=== PATIENT | female | born 1990 | race Caucasian/White ===

== ENCOUNTER 2019-05-16 07:49 | Emergency (ER) | payer BC, OTHER ==
[2019-05-16 08:15] VITALS: O2SAT 99
--- NOTE | 2019-05-16 08:42 | ERPHSYRPT ---
- History of Present Illness Time Seen by Provider: 05/16/19 08:15 Source: patient Exam Limitations: no limitations Patient Subjective Stated Complaint: 7 weeks and is bleeding, has been bleeding for 3 weeks but worse today Triage Nursing Assessment: Pt walked into the ER, vitals wnl, skin N/W/D, unable to hear heart tones at this time, blood is bright red and dark per patient, denies pain, hasn't had her first OB appt Physician History: 28 y/o white female presents with intermittent vaginal bleeding for 3 weeks. pt is approx 7 weeks . pt states vaginal bleeding sig increased this am and had associated vaginal cramping. no dizziness. no sig abd pain. no heart tones audible this am in ED. denies abd trauma Timing/Duration: intermittent, worse (this am) Activites at Onset: none Quality: cramping (mild vaginal) Onset Location: vaginal Pain Radiation: none Severity of Pain-Max: mild Severity of Pain-Current: mild Prior abdominal problems: none Sexual intercourse history: non-contributory Modifying Factors: Improves With: nothing Associated Symptoms: , No abdominal pain, No nausea, No vomiting, No dysuria Allergies/Adverse Reactions: Penicillins Allergy (Verified 05/16/19 08:15) Home Medications: No Reportable Medications [No Reported Medications] 05/16/19 [History] Hx Tetanus, Diphtheria Vaccination/Date Given: Yes Hx Influenza Vaccination/Date Given: No Hx Pneumococcal Vaccination/Date Given: No - Review of Systems Eyes: No Symptoms Ears, Nose, & Throat: No Symptoms Respiratory: No Symptoms Cardiac: No Symptoms Abdominal/Gastrointestinal: No Symptoms Genitourinary Symptoms: Vaginal Bleeding Musculoskeletal: No Symptoms Skin: No Symptoms Neurological: No Symptoms Psychological: No Symptoms Endocrine: No Symptoms Hematologic/Lymphatic: No Symptoms Immunological/Allergic: No Symptoms All Other Systems: Reviewed and Negative - Past Medical History Pertinent Past Medical History: No Neurological History: No Pertinent History ENT History: No Pertinent History Cardiac History: No Pertinent History Respiratory History: No Pertinent History Endocrine Medical History: No Pertinent History Musculoskeletal History: No Pertinent History GI Medical History: No Pertinent History History: No Pertinent History Psycho-Social History: No Pertinent History Female Reproductive Disorders: No Pertinent History - Past Surgical History Past Surgical History: Yes Neuro Surgical History: No Pertinent History Cardiac: No Pertinent History Respiratory: No Pertinent History Gastrointestinal: No Pertinent History Genitourinary: No Pertinent History Musculoskeletal: Orthopedic Surgery Female Surgical History: No Pertinent History - Social History Smoking Status: Never smoker Exposure to second hand smoke: No Drug Use: none Patient Lives Alone: No - Female History Hx Now: Yes Gestational Age: 7 weeks - Nursing Vital Signs Nursing Vital Signs: Initial Vital Signs Temperature 97.9 F 05/16/19 08:03 Pulse Rate 97 H 05/16/19 08:03 Blood Pressure 137/94 05/16/19 08:03 O2 Sat by Pulse Oximetry 99 05/16/19 08:03 Pain Scale Pain Intensity 0 - Physical Exam General Appearance: no apparent distress, alert, anxiety Eye Exam: PERRL/EOMI, eyes nml inspection Ears, Nose, Throat Exam: normal ENT inspection, moist mucous membranes Neck Exam: normal inspection, non-tender, supple, full range of motion Respiratory Exam: normal breath sounds, lungs clear, airway intact, No chest tenderness, No respiratory distress Cardiovascular Exam: regular rate/rhythm, normal heart sounds, normal peripheral pulses Gastrointestinal/Abdomen Exam: soft, normal bowel sounds, No tenderness, No guarding, No rebound Pelvic Exam: not done SpO2: 99 Ordered Tests: Active Orders 24 hr Category Date Time Status Heart Tones-ED STAT Care 05/16/19 08:30 Active IV Insertion STAT Care 05/16/19 08:30 Active OB <14 WKS 1ST GESTATION [US] Stat Exams 05/16/19 08:30 Completed CBC W DIFF Stat Lab 05/16/19 08:39 Completed CMP Stat Lab 05/16/19 08:39 Completed CULTURE,URINE Stat Lab 05/16/19 08:46 Received HCG, Quantitative (Inhouse) Stat Lab 05/16/19 08:30 Completed UA W/RFX UR CULTURE Stat Lab 05/16/19 08:46 Completed Medication Summary Generic Name Dose Route Start Last Admin Trade Name Freq PRN Reason Stop Dose Admin Sodium Chloride 500 mls @ 500 mls/hr 05/16/19 09:29 05/16/19 09:43 Sodium Chloride 0.9% 500 Ml IV 05/16/19 10:28 500 mls/hr .Q1H ONE Administration Discontinued Medications Generic Name Dose Route Start Last Admin Trade Name Freq PRN Reason Stop Dose Admin Sodium Chloride Confirm 05/16/19 09:39 Sodium Chloride 0.9% 1000 Ml Administered 08/07/19 09:40 Dose 1,000 mls @ .[facility] Lab/Rad Data: Laboratory Result Diagrams 05/16/19 08:39 05/16/19 08:39 Laboratory Results 05/16/19 05/16/19 05/16/19 Range/Units 08:46 08:39 08:39 WBC 8.6 (4.0-10.5) K/mm3 RBC 4.60 (4.1-5.4) M/mm3 Hgb 13.7 (12.0-16.0) gm/dl Hct 41.1 (35-47) % MCV 89.3 (78-100) fl MCH 29.8 (26-32) pg MCHC 33.3 (32-36) g/dl RDW 13.6 (11.5-14.0) % Plt Count 295 (150-450) K/mm3 MPV 10.6 H (6-9.5) fl Gran % 78.0 H (36.0-66.0) % Eos # (Auto) 0.03 (0-0.5) Absolute Lymphs (auto) 1.30 (1.0-4.6) Absolute Monos (auto) 0.55 (0.0-1.3) Lymphocytes % 15.1 L (24.0-44.0) % Monocytes % 6.4 (0.0-12.0) % Eosinophils % 0.3 (0.00-5.0) % Basophils % 0.2 (0.0-0.4) % Absolute Granulocytes 6.71 (1.4-6.9) Basophils # 0.02 (0-0.4) Sodium 140 (137-145) mmol/L Potassium 4.6 (3.5-5.1) mmol/L Chloride 106 (98-107) mmol/L Carbon Dioxide 25 (22-30) mmol/L Anion Gap 14.4 (5-15) MEQ/L BUN 9 (7-17) mg/dL Creatinine 0.62 (0.52-1.04) mg/dL Estimated GFR > 60.0 ML/MIN Glucose 82 (74-106) mg/dL Calcium 10.2 (8.4-10.2) mg/dL Total Bilirubin 0.90 (0.2-1.3) mg/dL AST 27 (14-36) U/L ALT 35 (0-35) U/L Alkaline Phosphatase 67 (38-126) U/L Serum Total Protein 8.0 (6.3-8.2) g/dL Albumin 4.7 (3.5-5.0) g/dL Beta HCG, Quant mIU/ml Urine Color TALIB (YELLOW) Urine Appearance SLIGHTLY CLOUDY (CLEAR) Urine pH 6.0 (5-6) Ur Specific [place] 1.026 (1.005-1.025) Urine Protein 30 (Negative) Urine Ketones MODERATE (NEGATIVE) Urine Blood LARGE (0-5) Donte/ul Urine Nitrite NEGATIVE (NEGATIVE) Urine Bilirubin NEGATIVE (NEGATIVE) Urine Urobilinogen NEGATIVE (0-1) mg/dL Ur Leukocyte Esterase NEGATIVE (NEGATIVE) Urine WBC (Auto) 6-10 (0-5) /HPF Urine RBC (Auto) >101 (0-2) /HPF U Epithel Cells (Auto) RARE (FEW) /HPF Urine Bacteria (Auto) RARE (NEGATIVE) /HPF Unidentified Crystals 2-5 (NEGATIVE) /HPF Urine Mucus (Auto) MODERATE (NEGATIVE) /HPF Urine Culture Reflexed YES (NO) Urine Glucose NEGATIVE (NEGATIVE) mg/dL 05/16/19 Range/Units 08:30 WBC (4.0-10.5) K/mm3 RBC (4.1-5.4) M/mm3 Hgb (12.0-16.0) gm/dl Hct (35-47) % MCV (78-100) fl MCH (26-32) pg MCHC (32-36) g/dl RDW (11.5-14.0) % Plt Count (150-450) K/mm3 MPV (6-9.5) fl Gran % (36.0-66.0) % Eos # (Auto) (0-0.5) Absolute Lymphs (auto) (1.0-4.6) Absolute Monos (auto) (0.0-1.3) Lymphocytes % (24.0-44.0) % Monocytes % (0.0-12.0) % Eosinophils % (0.00-5.0) % Basophils % (0.0-0.4) % Absolute Granulocytes (1.4-6.9) Basophils # (0-0.4) Sodium (137-145) mmol/L Potassium (3.5-5.1) mmol/L Chloride (98-107) mmol/L Carbon Dioxide (22-30) mmol/L Anion Gap (5-15) MEQ/L BUN (7-17) mg/dL Creatinine (0.52-1.04) mg/dL Estimated GFR ML/MIN Glucose (74-106) mg/dL Calcium (8.4-10.2) mg/dL Total Bilirubin (0.2-1.3) mg/dL AST (14-36) U/L ALT (0-35) U/L Alkaline Phosphatase (38-126) U/L Serum Total Protein (6.3-8.2) g/dL Albumin (3.5-5.0) g/dL Beta HCG, Quant 3219.8 mIU/ml Urine Color (YELLOW) Urine Appearance (CLEAR) Urine pH (5-6) Ur Specific [place] (1.005-1.025) Urine Protein (Negative) Urine Ketones (NEGATIVE) Urine Blood (0-5) Donte/ul Urine Nitrite (NEGATIVE) Urine Bilirubin (NEGATIVE) Urine Urobilinogen (0-1) mg/dL Ur Leukocyte Esterase (NEGATIVE) Urine WBC (Auto) (0-5) /HPF Urine RBC (Auto) (0-2) /HPF U Epithel Cells (Auto) (FEW) /HPF Urine Bacteria (Auto) (NEGATIVE) /HPF Unidentified Crystals (NEGATIVE) /HPF Urine Mucus (Auto) (NEGATIVE) /HPF Urine Culture Reflexed (NO) Urine Glucose (NEGATIVE) mg/dL - Progress Progress: unchanged Air Movement: good Progress Note: 05/16/19 09:33 u/s report-possible very early . prominent endometrial stripe. ? left corpus luteal cyst. Counseled pt/family regarding: lab results, diagnosis, need for follow-up, rad results - Departure Departure Disposition: Home Clinical Impression: Vaginal bleeding during Condition: Stable Critical Care Time: No Referrals: HARLEEN CUNHA MD [Primary Care Provider] - Additional Instructions: drink plenty of fluids. follow up with labor delivery rn for serial beta hcg levels and repeat ultrasound if indicated.
[2019-05-16 08:48] LABS: BASOPHIL % 0.2 % (0.0-0.4); Basophil (Absolute #) 0.02 (0-0.4); Eosinophil % 0.3 % (0.00-5.0); Eosinophil (Absolute #) 0.03 (0-0.5); Granulocyte Absolute (ANC) 6.71 (1.4-6.9); Hematocrit 41.1 % (35-47); Hemoglobin 13.7 gm/dl (12.0-16.0); Lymphocytes % 15.1 % (24.0-44.0); Mean Cell Volume 89.3 fl (78-100); Mean Corpuscular Hemoglobin 29.8 pg (26-32); Mean Corpuscular Hgb Concent. 33.3 g/dl (32-36); Mean Platelet Volume 10.6 fl (6-9.5); Monocyte (Absolute #) 0.55 (0.0-1.3); Monocytes % 6.4 % (0.0-12.0); Platelet Count 295 K/mm3 (150-450); Red Cell Distribution Width 13.6 % (11.5-14.0); White Blood Count 8.6 K/mm3 (4.0-10.5)
[2019-05-16 09:04] LABS: ALBUMIN 4.7 g/dL (3.5-5.0); ALKALINE PHOSPHATASE 67 U/L (38-126); ANION GAP 14.4 MEQ/L (5-15); BLOOD UREA NITROGEN 9 mg/dL (7-17); CHLORIDE 106 mmol/L (98-107); Calcium 10.2 mg/dL (8.4-10.2); Carbon Dioxide 25 mmol/L (22-30); Creatinine 1 0.62 mg/dL (0.52-1.04); Glucose 82 mg/dL (74-106); Potassium 4.6 mmol/L (3.5-5.1); SGOT/AST 27 U/L (14-36); SGPT/ALT 35 U/L (0-35); SODIUM 140 mmol/L (137-145)
[2019-05-16 09:05] LABS: Appearance SLIGHTLY CLOUDY (CLEAR); Bacteria RARE /HPF (NEGATIVE); Bilirubin NEGATIVE (NEGATIVE); Blood LARGE Ery/ul (0-5); Epithelial Cells RARE /HPF (FEW); Glucose NEGATIVE (NEGATIVE); Ketones MODERATE (NEGATIVE); Leukocyte Esterase NEGATIVE (NEGATIVE); Mucus MODERATE /HPF (NEGATIVE); Nitrite NEGATIVE (NEGATIVE); Protein,Urine Dip 30 (Negative); Specific Gravity 1.026 (1.005-1.025); Urobilinogen NEGATIVE mg/dL (0-1)
[2019-05-16 09:07] LABS: RBC >101 /HPF (0-2)
--- NOTE | 2019-05-16 09:16 | XRAY ---
Indication: Bleeding. Two-dimensional transvaginal early OB ultrasound performed. Comparison: None Uterus anteverted without intrauterine gestational sac, pole, or heart tones. Endometrial stripe is prominent measuring 10.6 mm. No abnormal endometrial fluid collection. Lower uterine segment demonstrates 7 mm nabothian cyst. Left ovary demonstrates a 2.6 cm anechoic cyst. Right ovary sonographically unremarkable. No free fluid. Impression: Negative transvaginal pelvic sonogram. Possible very early as evidenced by prominent endometrial stripe and dominant left ovary cyst, possibly corpus luteal cyst. Correlate with serial beta hCG and follow-up sonogram.
[2019-05-16] MEDS ORDERED: Sodium Chloride 0.9% 500 ML 500 ML IV ONE (09:29)
[2019-05-16] MEDS ORDERED: Sodium Chloride 0.9% 1000 ML 1,000 ML ONE (09:39)
[2019-05-16 11:14] VITALS: BP 133/87; PULSE 78
== END 2019-05-16 11:11 | disposition home or self-care (01) ==
LOC: ED 07:49
DX: O20.9 Hemorrhage in early pregnancy, unspecified (principal); Z3A.01 Less than 8 weeks gestation of pregnancy
CPT/HCPCS: 36000; 36415; 76801; 80053; 81001; 84702; 85025; 87086; 96360; 99284

== ENCOUNTER 2019-05-17 12:31 | Emergency (ER) | payer BC, OTHER ==
[2019-05-17 12:48] VITALS: O2SAT 100
[2019-05-17] MEDS ORDERED: Sodium Chloride 0.9% 1000 ML 1,000 ML ONE (12:54)
[2019-05-17] MEDS ORDERED: Sodium Chloride 0.9% 1000 ML 1,000 ML IV STA (12:54)
--- NOTE | 2019-05-17 13:01 | ERPHSYRPT ---
- History of Present Illness Time Seen by Provider: 05/17/19 12:49 Source: patient Exam Limitations: no limitations Patient Subjective Stated Complaint: is 7 weeks and began having vaginal bleeding three weeks ago. was seen in er yesterday for same complaint. today bleeding is heavier and is having lower abd cramping. states has soaked through 5-6 pantiliners today. Triage Nursing Assessment: ambulated to room per self. skin w/d, color normal, resp easy. lower abd tender, soft. Physician History: Is a 28-year-old white female 1 para 0 who states she is 7 weeks with last menstrual period of March 26, 2019 She states she's been having intermittent vaginal bleeding for 3 weeks she was seen yesterday in this emergency room with complaint of vaginal bleeding she had a quantitative hCG performed which was 3219 she also had a pelvic ultrasound which was stated to be a negative vaginal ultrasound with possible early (endometrial stripe), the ultrasound did show a positive dominant left ovary cyst possible corpus luteal cyst. Patient states that she has had increased vaginal bleeding since today and having lower abdominal cramping. Past medical history is negative past surgical history is negative Timing/Duration: other (vaginal bleeding off and on for 3 weeks, seen in this emergency room yesterday, states increased vaginal bleeding and lower abdominal cramping today) Severity: moderate Modifying Factors: Improves With: nothing Associated Symptoms: abdominal pain (Suprapubic abdominal pain), No nausea, No vomiting, No shortness of breath, No heartburn, No diaphoresis, No cough, No chills, No chest pain, No fever, No headaches, No loss of appetite, No malaise, No rash, No syncope, No seizure, No weakness Allergies/Adverse Reactions: Penicillins Allergy (Verified 05/17/19 12:43) Home Medications: No Reportable Medications [No Reported Medications] 05/16/19 [History] Hx Tetanus, Diphtheria Vaccination/Date Given: Yes Hx Influenza Vaccination/Date Given: No Hx Pneumococcal Vaccination/Date Given: No - Review of Systems Constitutional: No Fever, No Chills Eyes: No Symptoms Ears, Nose, & Throat: No Symptoms Respiratory: No Cough, No Dyspnea Abdominal/Gastrointestinal: Abdominal Pain (Suprapubic abdominal pain( cramping) ), No Nausea, No Vomiting, No Diarrhea, No Constipation, No Hematemesis, No Hematochezia, No Melena, No Dysphagia, No Appetite Changes Genitourinary Symptoms: , Vaginal Bleeding, No Dysuria, No Frequency, No Hematuria, No Hesitancy, No Incontinence, No Urgency, No Urinary Retention, No Flank Pain, No Menorrhagia, No Vaginal Discharge, No Vaginal Itching Musculoskeletal: No Back Pain, No Neck Pain Skin: No Rash Neurological: No Dizziness, No Focal Weakness, No Sensory Changes Psychological: No Symptoms Endocrine: No Symptoms All Other Systems: Reviewed and Negative - Past Medical History Pertinent Past Medical History: No Neurological History: No Pertinent History ENT History: No Pertinent History Cardiac History: No Pertinent History Respiratory History: No Pertinent History Endocrine Medical History: No Pertinent History Musculoskeletal History: No Pertinent History GI Medical History: No Pertinent History History: No Pertinent History Psycho-Social History: No Pertinent History Female Reproductive Disorders: No Pertinent History - Past Surgical History Past Surgical History: Yes Neuro Surgical History: No Pertinent History Cardiac: No Pertinent History Respiratory: No Pertinent History Gastrointestinal: No Pertinent History Genitourinary: No Pertinent History Musculoskeletal: Orthopedic Surgery Female Surgical History: No Pertinent History - Social History Smoking Status: Never smoker Exposure to second hand smoke: No Drug Use: none Patient Lives Alone: No - Female History Hx Now: Yes (7 weeks) - Nursing Vital Signs Nursing Vital Signs: Initial Vital Signs Temperature 97.9 F 05/17/19 12:37 Pulse Rate 81 05/17/19 12:37 Respiratory Rate 16 05/17/19 12:37 Blood Pressure 141/87 05/17/19 12:37 O2 Sat by Pulse Oximetry 100 05/17/19 12:37 Pain Scale Pain Intensity 2 - Physical Exam General Appearance: mild distress Eye Exam: PERRL/EOMI, eyes nml inspection Ears, Nose, Throat Exam: normal ENT inspection, TMs normal, pharynx normal, moist mucous membranes Neck Exam: normal inspection, non-tender, supple, full range of motion Respiratory Exam: normal breath sounds, lungs clear, No respiratory distress Cardiovascular Exam: regular rate/rhythm, normal heart sounds, normal peripheral pulses, capillary refill <2 sec Gastrointestinal/Abdomen Exam: soft, tenderness (slight suprapubic tenderness) Pelvic Exam: normal external exam, vaginal bleeding (small amount of blood in vaginal vault), other (pelvic examination: Normal female external genitalia, small amount of blood in the vaginal vault,, cervix closed small amount of clear mucus at the cervical os, no adnexal tenderness, no cervical motion tenderne, uuterus mildly enlarged), No adnexal mass, No mass, No cervical motion tenderness, No uterine tenderness Back Exam: normal inspection, normal range of motion, No CVA tenderness, No vertebral tenderness Extremity Exam: normal inspection, normal range of motion, pelvis stable Neurologic Exam: alert, oriented x 3, cooperative, rn wound care II-XII nml as tested, normal mood/affect, nml cerebellar function, nml station & gait, sensation nml, No motor deficits Skin Exam: normal color, warm, dry, No rash SpO2 Interpretation: normal (100%) SpO2: 100 Ordered Tests: Active Orders 24 hr Category Date Time Status Orthostatic Vital Signs STAT Care 05/17/19 12:54 Active Pelvic Exam Assist STAT Care 05/17/19 12:55 Active BMP Stat Lab 05/17/19 12:50 Completed CBC W DIFF Stat Lab 05/17/19 12:50 Completed HCG, Quantitative (Inhouse) Stat Lab 05/17/19 12:50 Completed Wet Prep Stat Lab 05/17/19 14:00 Completed Medication Summary Discontinued Medications Generic Name Dose Route Start Last Admin Trade Name Freq PRN Reason Stop Dose Admin Sodium Chloride 1,000 mls @ 999 mls/hr 05/17/19 12:54 05/17/19 14:05 Sodium Chloride 0.9% 1000 Ml IV 05/17/19 13:54 Infused .Q1H1M STA Infusion Sodium Chloride Confirm 05/17/19 12:54 Sodium Chloride 0.9% 1000 Ml Administered 05/17/19 12:55 Dose 1,000 mls @ ud [facility] Lab/Rad Data: Laboratory Result Diagrams 05/17/19 12:50 05/17/19 12:50 Laboratory Results 05/17/19 05/17/19 05/17/19 Range/Units 14:00 13:10 12:50 WBC (4.0-10.5) K/mm3 RBC (4.1-5.4) M/mm3 Hgb (12.0-16.0) gm/dl Hct (35-47) % MCV (78-100) fl MCH (26-32) pg MCHC (32-36) g/dl RDW (11.5-14.0) % Plt Count (150-450) K/mm3 MPV (6-9.5) fl Gran % (36.0-66.0) % Eos # (Auto) (0-0.5) Absolute Lymphs (auto) (1.0-4.6) Absolute Monos (auto) (0.0-1.3) Lymphocytes % (24.0-44.0) % Monocytes % (0.0-12.0) % Eosinophils % (0.00-5.0) % Basophils % (0.0-0.4) % Absolute Granulocytes (1.4-6.9) Basophils # (0-0.4) Sodium 142 (137-145) mmol/L Potassium 4.1 (3.5-5.1) mmol/L Chloride 106 (98-107) mmol/L Carbon Dioxide 25 (22-30) mmol/L Anion Gap 15.6 H (5-15) MEQ/L BUN 9 (7-17) mg/dL Creatinine 0.70 (0.52-1.04) mg/dL Estimated GFR > 60.0 ML/MIN Glucose 81 (74-106) mg/dL Calcium 10.5 H (8.4-10.2) mg/dL Beta HCG, Quant mIU/ml WBC (Wet Prep) Few RBC (Wet Prep) Many Epi Cells (Wet Prep) Rare Bacteria (Wet Prep) Few Clue Cells (Wet Prep) None Seen Trichomonas (Wet Prep) None Seen Budding Yeast (Wet Prp) None Seen ABO Group A Rh Factor POSITIVE Antibody Screen NEGATIVE (NEGATIVE) 05/17/19 05/17/19 Range/Units 12:50 12:50 WBC 11.7 H (4.0-10.5) K/mm3 RBC 4.34 (4.1-5.4) M/mm3 Hgb 13.2 (12.0-16.0) gm/dl Hct 38.8 (35-47) % MCV 89.4 (78-100) fl MCH 30.4 (26-32) pg MCHC 34.0 (32-36) g/dl RDW 13.6 (11.5-14.0) % Plt Count 301 (150-450) K/mm3 MPV 10.7 H (6-9.5) fl Gran % 84.7 H (36.0-66.0) % Eos # (Auto) 0.03 (0-0.5) Absolute Lymphs (auto) 1.09 (1.0-4.6) Absolute Monos (auto) 0.65 (0.0-1.3) Lymphocytes % 9.3 L (24.0-44.0) % Monocytes % 5.6 (0.0-12.0) % Eosinophils % 0.3 (0.00-5.0) % Basophils % 0.1 (0.0-0.4) % Absolute Granulocytes 9.92 H (1.4-6.9) Basophils # 0.01 (0-0.4) Sodium (137-145) mmol/L Potassium (3.5-5.1) mmol/L Chloride (98-107) mmol/L Carbon Dioxide (22-30) mmol/L Anion Gap (5-15) MEQ/L BUN (7-17) mg/dL Creatinine (0.52-1.04) mg/dL Estimated GFR ML/MIN Glucose (74-106) mg/dL Calcium (8.4-10.2) mg/dL Beta HCG, Quant 2446.6 mIU/ml WBC (Wet Prep) RBC (Wet Prep) Epi Cells (Wet Prep) Bacteria (Wet Prep) Clue Cells (Wet Prep) Trichomonas (Wet Prep) Budding Yeast (Wet Prp) ABO Group Rh Factor Antibody Screen (NEGATIVE) - Progress Progress: improved Progress Note: 05/17/19 14:20 28-year-old female who was seen here yesterday secondary to vaginal bleeding for 3 weeks patient had an endometrial stripe on ultrasound yesterday. Patient stated that she had heavy bleeding at home on physical exam she has a small amount of blood in her vagina there is a cervix is closed there small clear fluid at the cervix there is no adnexal or cervical motion tenderness Patient's quantitative hCG today is 2446 yesterday quantitative hCG was 3219 Told the patient that he really needs 48 hours to look for a halfing all values when looking at quantitative hCG and evaluation of a miscarriage. Patient's wet prep is essentially normal blood type a positive negative antibody screen Chemistry is stable patient's CBC white blood cell 11.7 hemoglobin 13.2 hematocrit 38.8 platelets 301 Urinalysis was done yesterday Patient was given 1 L of normal saline will give patient Tylenol for pain. Will give patient a work slip for today and tomorrow. She is to followup with her [facility] physician. Expects repeat quantitative hCG tomorrow to be compared with the one from yesterday alternatively she can have one in 2 days from today. - Departure Departure Disposition: Home Clinical Impression: Threatened , Vaginal bleeding during Condition: Fair Critical Care Time: No Referrals: HARLEEN CUNHA MD [Primary Care Provider] - Additional Instructions: Return home. Plenty of fluids. Nothing in your vagina. Tylenol every 4 hours as needed for pain. Followup with your [facility] physician call and arrange followup. Return for acute distress or for severe symptoms or for any problems.
[2019-05-17 13:20] LABS: BASOPHIL % 0.1 % (0.0-0.4); Basophil (Absolute #) 0.01 (0-0.4); Eosinophil % 0.3 % (0.00-5.0); Eosinophil (Absolute #) 0.03 (0-0.5); Granulocyte Absolute (ANC) 9.92 (1.4-6.9); Granulocytes % 84.7 % (36.0-66.0); Hematocrit 38.8 % (35-47); Hemoglobin 13.2 gm/dl (12.0-16.0); Lymphocyte (Absolute #) 1.09 (1.0-4.6); Lymphocytes % 9.3 % (24.0-44.0); Mean Cell Volume 89.4 fl (78-100); Mean Corpuscular Hemoglobin 30.4 pg (26-32); Mean Platelet Volume 10.7 fl (6-9.5); Monocyte (Absolute #) 0.65 (0.0-1.3); Monocytes % 5.6 % (0.0-12.0); Platelet Count 301 K/mm3 (150-450); Red Blood Count 4.34 M/mm3 (4.1-5.4); Red Cell Distribution Width 13.6 % (11.5-14.0); White Blood Count 11.7 K/mm3 (4.0-10.5)
[2019-05-17 13:32] LABS: ANION GAP 15.6 MEQ/L (5-15); BLOOD UREA NITROGEN 9 mg/dL (7-17); CHLORIDE 106 mmol/L (98-107); Calcium 10.5 mg/dL (8.4-10.2); Carbon Dioxide 25 mmol/L (22-30); Glucose 81 mg/dL (74-106); Potassium 4.1 mmol/L (3.5-5.1); SODIUM 142 mmol/L (137-145)
[2019-05-17 13:51] VITALS: BP 111/80; PULSE 94
[2019-05-17 14:02] LABS: ABO TYPING A; Antibody Screen NEGATIVE (NEGATIVE); RH TYPING POSITIVE
[2019-05-17 14:03] LABS: Bacteria Few; Clue Cells None Seen; Red Blood Cells Many; Trichomonas None Seen; White Blood Cells Few; Yeast None Seen
[2019-05-17] MEDS ORDERED: TYLENOL 325 MG PO ONE (14:24)
[2019-05-17] MEDS ORDERED: TYLENOL 325 MG ONE (14:33)
[2019-05-17 15:23] LABS: CHLAMYDIA DNA NEGATIVE; N GONORRHOEAE DNA NEGATIVE
== END 2019-05-17 14:54 | disposition home or self-care (01) ==
LOC: ED 12:31
DX: O20.0 Threatened abortion (principal); Z3A.01 Less than 8 weeks gestation of pregnancy
CPT/HCPCS: 36000; 36415; 80048; 84702; 85025; 86850; 86900; 86901; 87210; 87490; 87590; 96360; 99284; A9270-GY

== ENCOUNTER 2019-07-09 09:44 | Day surgery (SDC) | payer BC ==
--- NOTE | 2019-07-09 08:53 | HP ---
DATE OF SURGERY: 07/09/2019 HISTORY OF PRESENT ILLNESS: The patient is a 29 year-old female with some abdominal pain, some nausea, afraid to eat, worse with meat. The smell of food causes nausea. Ultrasound no stones. HIDA ejection fraction 28%. It was felt she had symptomatic biliary dyskinesia, chronic cholecystitis. PAST MEDICAL HISTORY: Migraines. PAST SURGICAL HISTORY: Left foot big toe surgery in 2012. MEDICATIONS: Sumaritan (this is how the patient spells her medication). ALLERGIES: PENICILLIN. FAMILY HISTORY: Cancer, diabetes, hypertension. SOCIAL HISTORY: No smoking or alcohol abuse. REVIEW OF SYSTEMS: Fourteen systems reviewed. No chest pain or palpitations other systems negative or noncontributory as above and per preadmission questionnaire. She had been in the past and ended up having a miscarriage it sounds like. She wants to be rescheduled for cholecystectomy at this time. PHYSICAL EXAMINATION: GENERAL: No acute distress. HEENT: Sclerae nonicteric. NECK: No JVD. CHEST: Equal excursion, nonlabored breathing. CVS: Regular rate and rhythm. ABDOMEN: Soft, some mild tenderness epigastrium right upper quadrant. No peritoneal signs. EXTREMITIES: No edema. NEURO: Alert, oriented, moving extremities symmetrically. No gross motor deficits noted. IMPRESSION: Symptomatic biliary dyskinesia, chronic cholecystitis. I feel the patient will benefit from cholecystectomy. She is planned for laparoscopic cholecystectomy possible open. She was shown the gallbladder pamphlet and risk sheet, explained the procedure in detail including but not limited to bleeding or infection, risk of trocar injury or hernia, small risk of bowel, bladder or blood vessel or trocar injury, risk of hernia, risk of bile leak, bile duct injury, retained stone or sludge possibly requiring further procedure either open or ERCP, general risk of anesthesia, deep venous thrombosis, pulmonary embolism, pneumonia, perioperative risk of aches, pains, bloating, constipation and/or loose stools possibly even chronic in nature. She understands and agrees to the planned procedure, will proceed with outpatient laparoscopic cholecystectomy with possible open.
[~2019-07-09 09:44] MED LIST: CLINDAMYCIN-D5W 900 MG/50 ML*** 900 MG/50 ML BAG IV SCH; Lactated Ringers 1,000 ML IV ONE; Lactated Ringers 1,000 ML IV SCH; Levofloxacin 500MG/100ML D5W 500 MG/100 ML BAG IV ONE; Sensorcaine 0.25% 10 ML ONE
[2019-07-09] MEDS ORDERED: Zemuron 100 MG/10 ML ONE (10:19)
[2019-07-09] MEDS ORDERED: DIPRIVAN 200 MG/20 ML IV ONE (10:19)
[2019-07-09] MEDS ORDERED: SUBLIMAZE 250 MCG/5 ML ONE (10:20)
[2019-07-09] MEDS ORDERED: Versed 2 MG/2 ML Injection ONE (10:20)
[2019-07-09] MEDS ORDERED: Levofloxacin 500MG/100ML D5W 500 MG/100 ML BAG IV ONE (11:19)
[2019-07-09] MEDS ORDERED: Decadron 4 MG INJ ONE (11:48)
[2019-07-09] MEDS ORDERED: Xylocaine-Mpf 2% 5 Ml Vial ONE (11:50)
[2019-07-09] MEDS ORDERED: Zofran 4 MG/2 ML VIAL ONE ×2 (12:09→13:09)
[2019-07-09] MEDS ORDERED: BRIDION 200MG/2ML IV ONE (12:09)
[2019-07-09] MEDS ORDERED: TORAdol 30 mg Injection ONE (12:09)
[2019-07-09] MEDS ORDERED: DILAUDID 2 MG INJECTION ONE (12:34)
[2019-07-09] MEDS ORDERED: SUBLIMAZE 100 MCG/2 ML ONE (12:50)
[2019-07-09] MEDS ORDERED: Compazine 10 MG/2 ML IV ONE (14:35)
[2019-07-09] MEDS ORDERED: Lactated Ringers 1,000 ML IV ONE (15:34)
[2019-07-09 15:54] VITALS: O2SAT 98
[2019-07-09 16:52] VITALS: BP 123/71; PULSE 71
--- NOTE | 2019-07-10 07:56 | OP ---
SURGERY DATE/TIME: 07/09/2019 1140 PREOPERATIVE DIAGNOSIS: Symptomatic biliary dyskinesia, chronic cholecystitis. POSTOPERATIVE DIAGNOSIS: Symptomatic biliary dyskinesia, chronic cholecystitis. PROCEDURE: Laparoscopic cholecystectomy. SURGEON: Dr. Cosme Rowe. ANESTHESIA: General. ESTIMATED BLOOD LOSS: Minimal. INDICATIONS: As noted above. Risks and benefits explained in detail but not limited to and consent obtained. DESCRIPTION OF PROCEDURE AND FINDINGS: The patient was taken to the operating room. General anesthesia induced. Abdomen prepped and draped in the usual sterile fashion. After official time out and no disagreement with planned procedure, a transverse incision made supraumbilical area. Fascia grasped and pulled upward. Veress needle inserted and tested with saline. Pneumoperitoneum accomplished insufflating opening pressure of 0-15. An 11 mm bladeless port and camera inserted without difficulty followed by two - 5 mm right upper quadrant ports and 5 mm epigastric port. The gallbladder grasped retracted over the edge of the liver and laterally away from Calot's triangle. It had extensive chronic inflammation around the infundibular cystic duct junction area. Slowly and carefully this is dissected posterior, lateral to anterior fashion slowly and carefully until the cystic duct and cystic artery were isolated until critical view obtained both anteriorly and posteriorly. Once this is accomplished the cystic artery clipped x3 and divided in the usual fashion. Cystic duct had been cleared and again critical view obtained both anteriorly and posteriorly. Once this is accomplished the cystic duct clipped x3 and divided in usual fashion. The gallbladder slowly and carefully dissected free from its dense attachment to liver bed, staying directly on the gallbladder wall. It is slowly and carefully dissected free with aid of cautery staying directly on the gallbladder wall. Just prior to releasing from final attachments to the anterior edge of the liver, a little bit of bile seeped from the clipped end in the infundibular area this was reclipped. Clips are noted in place in cystic duct and cystic artery stump. There are no signs of any active bleeding or bile leakage from the liver bed. Gallbladder released from final attachments to anterior edge of the liver, pulled up and out the supraumbilical port site, decompressed and passed off. Copious amount of irrigation accomplished lateral to the liver and subhepatic space irrigating until clear. Liver bed re-inspected. Clips noted in place in cystic duct and cystic artery stump. There were no signs of any active bleeding or bile leakage. It was there was no benefit from drain placement. Fascial defect 07/20 site closed with puncture closure device with #1 Vicryl. Steri-Strips and sterile dressing applied. The patient tolerated the procedure well. There were no immediate complications. Findings discussed with the family out in the waiting area.
== END 2019-07-09 16:58 | disposition home or self-care (01) ==
LOC: SDC 09:44
PROVIDERS: ATTEND Surgery
DX: K81.1 Chronic cholecystitis (principal); K82.8 Other specified diseases of gallbladder
CPT/HCPCS: 84703; J1100; J1170; J1885; J1956; J2250; J2405; J2704; J3010

== ENCOUNTER 2021-04-11 21:03 | Emergency (ER) | payer BC, OTHER ==
[2021-04-11 21:22] VITALS: O2SAT 99
--- NOTE | 2021-04-11 22:03 | ERPHSYRPT ---
- History of Present Illness Source: patient Patient Subjective Stated Complaint: "A horse stepped on my foot." Triage Nursing Assessment: She reported that a horse stepped on her right foot while at home. Denied hearing/feeling any popping sensations. Reported mild pain 5/10 with slight associated numbness in the toes. Pain aggravated with ambulation. Decreased ROM d/t pain. Pedal/posterior tibial pulses +3 bilateral. Contusion with minimal edema and ecchymosis to the dorsal aspect. No obvious deformities. Physician History: Horse vs R foot before arrival. Pt denies other/previous injury. Method of Injury: direct blow Occurred: just prior to arrival Quality: constant Severity of Pain-Max: moderate Severity of Pain-Current: moderate Lower Extremities Pain: foot: right Modifying Factors: Improves With: movement Allergies/Adverse Reactions: Penicillins Allergy (Verified 04/11/21 21:09) Anaphylactic Reaction Home Medications: Norgestimate-Ethinyl Estradiol [Estarylla 0.25-0.035 mg Tablet] 1 each PO DAILY 07/02/19 [History] Nortriptyline HCl 10 mg PO HS 07/02/19 [History] Hx Tetanus, Diphtheria Vaccination/Date Given: Yes Hx Influenza Vaccination/Date Given: Yes Hx Pneumococcal Vaccination/Date Given: No Travel Risk - International Travel Have you traveled outside of the country in past 3 weeks: No - Coronavirus Screening Are you exhibiting any of the following symptoms?: No Close contact with a COVID-19 positive Pt in past 14-21 Days: No - Vaccine Status Have you recieved a Covid-19 vaccination: No - Review of Systems Constitutional: No Symptoms Eyes: No Symptoms Ears, Nose, & Throat: No Symptoms Respiratory: No Symptoms Cardiac: No Symptoms Abdominal/Gastrointestinal: No Symptoms Genitourinary Symptoms: No Symptoms Skin: No Symptoms Neurological: No Symptoms Psychological: No Symptoms Endocrine: No Symptoms Hematologic/Lymphatic: No Symptoms Immunological/Allergic: No Symptoms - Past Medical History Pertinent Past Medical History: No Neurological History: No Pertinent History ENT History: No Pertinent History Cardiac History: No Pertinent History Respiratory History: No Pertinent History Endocrine Medical History: No Pertinent History Musculoskeletal History: No Pertinent History GI Medical History: No Pertinent History History: No Pertinent History Psycho-Social History: No Pertinent History Female Reproductive Disorders: No Pertinent History - Past Surgical History Past Surgical History: Yes Neuro Surgical History: No Pertinent History Cardiac: No Pertinent History Respiratory: No Pertinent History Gastrointestinal: Cholecystectomy Genitourinary: No Pertinent History Musculoskeletal: Orthopedic Surgery Female Surgical History: No Pertinent History Other Surgical History: surgery on great toe left foot pin and plate due to "crushed foot" 2012 - Social History Smoking Status: Never smoker Exposure to second hand smoke: Yes Drug Use: none Patient Lives Alone: Yes Significant Family History: no pertinent family hx - Female History Hx Now: No - Nursing Vital Signs Nursing Vital Signs: Initial Vital Signs Pulse Rate 107 H 04/11/21 21:04 Respiratory Rate 18 04/11/21 21:04 Blood Pressure 131/93 04/11/21 21:04 O2 Sat by Pulse Oximetry 99 04/11/21 21:04 Pain Scale Pain Intensity 5 Tachy - Physical Exam General Appearance: no apparent distress Eyes, Ears, Nose, Throat Exam: normal ENT inspection Neck Exam: normal inspection, non-tender Cardiovascular/Respiratory Exam: normal breath sounds, tachycardia Gastrointestinal/Abdominal Exam: non-tender, soft Back Exam: normal inspection, normal range of motion, No vertebral tenderness Hips Exam: bilateral: non-tender, normal inspection, normal range of motion, no evidence of injury Legs Exam: bilateral leg: non-tender, normal inspection, normal range of motion, no evidence of injury Knees Exam: bilateral knee: non-tender, normal inspection, normal range of motion, no evidence of injury Ankle Exam: bilateral ankle: non-tender, normal inspection, normal range of motion, no evidence of injury Foot Exam: right foot: abrasions/lacerations (Abrasion dorsal R foot/good pedal pulse, distal sensation, and capillary return) Neuro/Tendon Exam: normal sensation, normal motor functions, normal tendon functions, responds to pain Mental Status Exam: alert, oriented x 3, cooperative Skin Exam: normal color, warm, dry SpO2 Interpretation: normal SpO2: 99 O2 Delivery: Room Air - Course Nursing assessment & vital signs reviewed: Yes - Radiology Exams Foot X-ray Interpretation: Interpreted by me (R foot neg per ER read) Ordered Tests: Active Orders 24 hr Category Date Time Status FOOT (MINIMUM 3 VIEWS) Stat Exams 04/11/21 21:20 Completed - Progress Progress Note: 04/11/21 22:06 Pt refuses pain meds Tetanus up to date Counseled pt/family regarding: need for follow-up, rad results - Departure Departure Disposition: Home Clinical Impression: Foot contusion Condition: Stable Critical Care Time: No Referrals: HARLEEN CUNHA MD [Primary Care Provider] - Instructions: Contusion (DC) Additional Instructions: Ice for 12-24 hours Motrin/Tylenol for pain Follow up with your family MD Return to ER for increasing pain
[2021-04-11 22:26] VITALS: BP 114/76; PULSE 92
--- NOTE | 2021-04-11 22:35 | XRAY ---
Indication: Pain following horse injury. Comparison: None 3 nonweightbearing views right foot demonstrates tiny posterior heel spur. No other bony, articular, or soft tissue abnormalities..
== END 2021-04-11 22:29 | disposition home or self-care (01) ==
LOC: ED 21:03
DX: S90.31XA Contusion of right foot, initial encounter (principal); W55.19XA Other contact with horse, initial encounter
CPT/HCPCS: 73630; 99283

== ENCOUNTER 2021-06-21 13:59 | Emergency (ER) | payer BC, OTHER ==
[2021-06-21 14:50] LABS: Appearance CLOUDY (CLEAR); Bilirubin NEGATIVE (NEGATIVE); Blood LARGE Ery/ul (0-5); Epithelial Cells FEW /HPF (FEW); Glucose NEGATIVE (NEGATIVE); Ketones NEGATIVE (NEGATIVE); Leukocyte Esterase TRACE (NEGATIVE); Mucus MANY /HPF (NEGATIVE); Nitrite NEGATIVE (NEGATIVE); Non-Squamous Epithelial Cells RARE /HPF (FEW); Protein,Urine Dip 100 (Negative); Specific Gravity 1.025 (1.005-1.025); Urobilinogen NEGATIVE mg/dL (0-1); WBC >100 /HPF (0-5)
[2021-06-21 15:01] LABS: RBC >101 /HPF (0-2)
[2021-06-21] MEDS ORDERED: BACTRIM DS TABLET PO STA (15:08)
--- NOTE | 2021-06-21 15:12 | ERPHSYRPT ---
- History of Present Illness Time Seen by Provider: 06/21/21 14:00 Source: patient Exam Limitations: no limitations Patient Subjective Stated Complaint: PT states "I think I have a UTI. It blunt when I pee." Triage Nursing Assessment: PT presented alert and oriented X 3, skin wpd Pt ambulates with an upright steady gait, able to speak in clear full sentences. Pt in no apparent respiratory distress. 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 Does have similar symptoms multiple times in the past with UTI. No fever chills nausea or vomiting. Timing/Duration: day(s) (2), gradual onset, worse Quality: burning Onset Location: suprapubic, urethral Pain Radiation: back Severity of Pain-Max: moderate Severity of Pain-Current: moderate Prior abdominal problems: UTI Sexual intercourse history: non-contributory Modifying Factors: Worsens With: urinating Associated Symptoms: dysuria, lower back pain, No abdominal pain, No fever, No chills, No nausea, No vomiting, No , No loss of bladder control, No swelling, No syncope Allergies/Adverse Reactions: Penicillins Allergy (Verified 04/11/21 21:09) Anaphylactic Reaction Hx Tetanus, Diphtheria Vaccination/Date Given: Yes Hx Influenza Vaccination/Date Given: Yes Hx Pneumococcal Vaccination/Date Given: No Travel Risk - International Travel Have you traveled outside of the country in past 3 weeks: No - Coronavirus Screening Are you exhibiting any of the following symptoms?: No Close contact with a COVID-19 positive Pt in past 14-21 Days: Yes - Vaccine Status Have you recieved a Covid-19 vaccination: No - Review of Systems Constitutional: No Symptoms Eyes: No Symptoms Respiratory: No Symptoms Cardiac: No Symptoms Abdominal/Gastrointestinal: No Symptoms Genitourinary Symptoms: Dysuria, Frequency Musculoskeletal: Back Pain Skin: No Symptoms Neurological: No Symptoms Psychological: No Symptoms Endocrine: No Symptoms Hematologic/Lymphatic: No Symptoms Immunological/Allergic: No Symptoms - Past Medical History Pertinent Past Medical History: No Neurological History: No Pertinent History ENT History: No Pertinent History Cardiac History: No Pertinent History Respiratory History: No Pertinent History Endocrine Medical History: No Pertinent History Musculoskeletal History: No Pertinent History GI Medical History: No Pertinent History History: No Pertinent History Psycho-Social History: No Pertinent History Female Reproductive Disorders: No Pertinent History - Past Surgical History Past Surgical History: Yes Neuro Surgical History: No Pertinent History Cardiac: No Pertinent History Respiratory: No Pertinent History Gastrointestinal: Cholecystectomy Genitourinary: No Pertinent History Musculoskeletal: Orthopedic Surgery Female Surgical History: No Pertinent History Other Surgical History: surgery on great toe left foot pin and plate due to "crushed foot" 2012 - Social History Smoking Status: Never smoker Exposure to second hand smoke: Yes Drug Use: none Patient Lives Alone: Yes Significant Family History: no pertinent family hx - Female History Hx Last Menstrual Period: 06/01/2021 Hx Now: (possible) - Nursing Vital Signs Nursing Vital Signs: Initial Vital Signs Temperature 97.2 F 06/21/21 14:09 Pulse Rate 80 06/21/21 14:09 Respiratory Rate 20 06/21/21 14:09 Blood Pressure 142/89 06/21/21 14:09 O2 Sat by Pulse Oximetry 99 06/21/21 14:09 Pain Scale Pain Intensity 2 - Physical Exam General Appearance: no apparent distress, alert Neck Exam: normal inspection, full range of motion Respiratory Exam: normal breath sounds, lungs clear Cardiovascular Exam: regular rate/rhythm, normal heart sounds Gastrointestinal/Abdomen Exam: soft, normal bowel sounds, tenderness (Minimal suprapubic tenderness. No right or left lower quadrant tenderness at all. No CVA tenderness.) Back Exam: normal inspection, normal range of motion, No CVA tenderness Extremity Exam: normal inspection, normal range of motion Neurologic Exam: alert, oriented x 3, cooperative Skin Exam: normal color SpO2 Interpretation: normal SpO2: 99 O2 Delivery: Room Air Ordered Tests: Active Orders 24 hr Category Date Time Status CULTURE,URINE Stat Lab 06/21/21 14:25 Received HCG,QUALITATIVE URINE Stat Lab 06/21/21 14:25 Completed UA W/RFX UR CULTURE Stat Lab 06/21/21 14:25 Completed Lab/Rad Data: Laboratory Results 06/21/21 06/21/21 Range/Units 14:25 14:25 Urine Color YELLOW (YELLOW) Urine Appearance CLOUDY (CLEAR) Urine pH 6.0 (5-6) Ur Specific [place] 1.025 (1.005-1.025) Urine Protein 100 (Negative) Urine Ketones NEGATIVE (NEGATIVE) Urine Blood LARGE (0-5) Donte/ul Urine Nitrite NEGATIVE (NEGATIVE) Urine Bilirubin NEGATIVE (NEGATIVE) Urine Urobilinogen NEGATIVE (0-1) mg/dL Ur Leukocyte Esterase TRACE (NEGATIVE) Urine WBC (Auto) >100 (0-5) /HPF Urine RBC (Auto) >101 (0-2) /HPF U Epithel Cells (Auto) FEW (FEW) /HPF Urine Bacteria (Auto) NONE (NEGATIVE) /HPF U Non-Squamous Epi Cells RARE (FEW) /HPF Urine Mucus (Auto) MANY (NEGATIVE) /HPF Urine Culture Reflexed YES (NO) Urine Glucose NEGATIVE (NEGATIVE) mg/dL Urine HCG, Qual NEGATIVE (Negative) - Progress Progress: re-examined Air Movement: good Progress Note: 06/21/21 15:11 Does have UTI, started on Bactrim. No right lower quadrant tenderness at all. Recommended outpatient follow-up. Discussed signs symptoms of worsening needing return to ER which she seems understanding. Blood Culture(s) Obtained: No Antibiotics given: Yes Counseled pt/family regarding: lab results, diagnosis, need for follow-up - Departure Departure Disposition: Home Clinical Impression: Acute UTI Condition: Stable Critical Care Time: No Referrals: HARLEEN CUNHA MD [Primary Care Provider] - Follow Up with PCP/3 days Instructions: Urinary Tract Infection, Adult (DC) Additional Instructions: Drink plenty of fluids. Take Tylenol/ibuprofen as needed. Follow-up with your primary care for reevaluation. Return to ER for intractable lower abdominal pain, fever chills/vomiting etc. Prescriptions: Smz/Tmp Ds Tablet [Bactrim Ds Tablet] 1 udtab PO BID #14 tablet
[2021-06-21] MEDS ORDERED: BACTRIM DS TABLET PO ONE (15:18)
[2021-06-21 15:31] VITALS: BP 100/72; PULSE 75; O2SAT 100
== END 2021-06-21 15:30 | disposition home or self-care (01) ==
LOC: ED 13:59
DX: N39.0 Urinary tract infection, site not specified (principal); R30.0 Dysuria; R10.9 Unspecified abdominal pain
CPT/HCPCS: 81001; 84703; 87086; 99283; A9270-GY